=== PATIENT | female | born 1945 | race African-American/Black ===

== ENCOUNTER 2017-02-04 13:24 | Emergency (ER) | payer SELFPAY ==
[2017-02-04] MEDS ORDERED: Ketorolac Tromethamine 30 MG/ML VIAL ONE (15:32)
== END 2017-02-04 15:58 | disposition home or self-care (01) ==
LOC: ERS 13:24
DX: K08.89 Other specified disorders of teeth and supporting structures (principal); E11.9 Type 2 diabetes mellitus without complications; I10 Essential (primary) hypertension; G40.909 Epilepsy, unspecified, not intractable, without status epilepticus; F32.9 Major depressive disorder, single episode, unspecified
CPT/HCPCS: 96372; J1885

== ENCOUNTER 2017-02-10 11:11 | Emergency (ER) | payer OTHER, SELFPAY ==
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
== END 2017-02-10 13:28 | disposition home or self-care (01) ==
LOC: ERS 11:11
DX: M54.2 Cervicalgia (principal); E11.9 Type 2 diabetes mellitus without complications; I10 Essential (primary) hypertension; F32.9 Major depressive disorder, single episode, unspecified; V43.52XA Car driver injured in collision with other type car in traffic accident, initial encounter; Z79.899 Other long term (current) drug therapy
CPT/HCPCS: 70450; 71010; 72125

== ENCOUNTER 2017-06-14 17:44 | Emergency (ER) | payer MEDICARE, OTHER, SELFPAY ==
--- NOTE | 2017-06-14 19:55 | RAD ---
TWO VIEW CHEST: 06/14/17 HISTORY: Cough. Lungs are clear. No infiltrate seen. Heart and mediastinum unremarkable. IMPRESSION: No evidence of acute infiltrate. POS: [facility]
[2017-06-14] MEDS ORDERED: Albuterol Sulfate 2.5 mg/0.5 ml Neb ONE ×2 (20:45)
== END 2017-06-14 23:18 | disposition home or self-care (01) ==
LOC: ERS 17:44
DX: J06.9 Acute upper respiratory infection, unspecified (principal); I10 Essential (primary) hypertension; F32.9 Major depressive disorder, single episode, unspecified; G40.909 Epilepsy, unspecified, not intractable, without status epilepticus; Z79.84 Long term (current) use of oral hypoglycemic drugs; Z79.899 Other long term (current) drug therapy
CPT/HCPCS: 71046; 94640; J7611; J7620